=== PATIENT | female | born 1940 | race African-American/Black ===

== ENCOUNTER 2019-07-21 11:21 | Emergency (ER) | payer MEDICARE, OTHER ==
[~2019-07-21] VITALS: Ht 175.3 cm; Wt 74.8 kg
[2019-07-21] MEDS ORDERED: METOPROLOL SUCC25 MG ORAL (11:40)
[2019-07-21] MEDS ORDERED: PRAVACHOL40 MG ORAL (11:40)
[2019-07-21] MEDS ORDERED: LOSARTAN POTAS100 MG ORAL (11:40)
[2019-07-21] MEDS ORDERED: SYNTHROID150 MCG ORAL (11:40)
[2019-07-21] MEDS ORDERED: MELATONIN 10 M1 EACH ORAL (11:50)
[2019-07-21] MEDS ORDERED: ACETAMINOPHEN500 M5 ORAL (11:50)
[2019-07-21] MEDS ORDERED: ELIQUIS5 MG PO (11:50)
--- NOTE | 2019-07-21 11:54 | Emergency Room Report ---
History of Present Illness General Chief Complaint: Dizziness Source: Patient Present Illness HPI The patient states that she has had difficulty with feeling lightheaded since she was diagnosed with atrial fibrillation. She states that last month she had been feeling lightheaded and she ended up being diagnosed with intermittent atrial fibrillation. Apparently she also had a rapid rate. She is being managed by Dr. Meehan (social work associate). She was started on metoprolol for rate control. She states that she continues on her losartan, Eliquis and other medication she was taking other than amlodipine which she was taken off of it. She states she continues to have daily lightheadedness and then called her primary care physician and her primary care physician asked her if she had been taking her blood pressure. She states she took her blood pressure this morning several times and noted that her blood pressure was elevated. She states her blood pressure was systolic 170 and systolic 160. She states normally her systolic blood pressure is much lower than that. She states normally her systolic blood pressure is 120 or lower. She denies chest pain or shortness of breath. She denies recent illness. She denies tingling or numbness. She denies weakness. She denies nausea or vomiting. She has had some mild headache. She denies spinning sensation or loss of balance. She denies trauma or fall. She has no other complaints. Allergies: Coded Allergies: No Known Allergies (Unverified , 07/21/19) COVID-19 Screening Contact w/high risk pt: No Recent Travel to affected area: No Experienced COVID-19 symptoms?: No COVID-19 Testing performed MANAGER VALUATION: No Patient History Past Medical History: see triage record, HTN, AFib, other - Hypothyroid Past Surgical History: hysterectomy Social History: Denies: smoking, alcohol use, drug use Now: No Reviewed Nursing Documentation: PMH: Agreed; PSxH: Agreed Nursing Documentation-PMH Past Medical History: No History, Except For Hx Hypertension: Yes Review of Systems All Other Systems: negative except mentioned in HPI Physical Exam Vital Signs Date Time Temp Pulse Resp B/P (MAP) Pulse Ox O2 Delivery O2 Flow Rate FiO2 07/21/19 11:31 98.8 72 17 164/75 (104) 97 Room Air Sp02 EP Interpretation: reviewed, normal General Appearance: no apparent distress, alert, GCS 15, non-toxic Head: normocephalic, atraumatic Eyes: bilateral eye normal inspection, bilateral eye PERRL ENT: hearing grossly normal, normal pharynx, no angioedema, normal voice Neck: full range of motion, supple/symm/no masses Respiratory: chest non-tender, lungs clear, normal breath sounds, no respiratory distress, no retraction, no accessory muscle use, speaking full sentences Cardiovascular #1: regular rate, rhythm, no edema Gastrointestinal: normal bowel sounds, non tender, soft, non-distended, no guarding, no rebound Rectal: deferred Musculoskeletal: back normal, normal range of motion, gait/station normal, non- tender Neurologic: alert, motor strength/tone normal, oriented x3, sensory intact, responsive, speech normal Psychiatric: judgement/insight normal, memory normal, mood/affect normal, no suicidal/homicidal ideation Skin: no rash, normal color Medical Decision Making Diagnostic Impression: Primary Impression: Lightheadedness Additional Impression: Hypertension ER Course I suspect this patient's symptoms are side effects related to the metoprolol. Also, it appears that removing the amlodipine from the patient's regimen has caused her blood pressure to no longer be controlled. Overall, my evaluation of this patient was benign. I did obtain a CT of the head which was unremarkable. She underwent a cardiac work-up that was negative. EKG was unremarkable and troponin negative. Overall her evaluation was reassuring. I did contact the patient's social work associate Dr. Meehan. She recommended adding back the patient's amlodipine and possibly decreasing the metoprolol with the knowledge that possibly this could not rate control the patient's A. fib if she were to go back into atrial fibrillation. Together with the social work associate and with the patient and shared decision making, the patient will restart her amlodipine in the morning and will decrease the metoprolol to 1/2 tablet and take it in the evenings. The patient will also follow-up closely with Dr. Meehan. The patient is given close return precautions and follow-up instructions. Laboratory Tests Test 07/21/19 12:00 White Blood Count 5.9 K/UL (4.8-10.8) Red Blood Count 4.66 M/UL (4.20-5.40) Hemoglobin 11.8 G/DL (12.0-16.0) L Hematocrit 39.7 % (37.0-47.0) Mean Corpuscular Volume 85 FL (80-99) Mean Corpuscular Hemoglobin 25.4 PG (27.0-31.0) L Mean Corpuscular Hemoglobin Concent 29.8 G/DL (32.0-36.0) L Red Cell Distribution Width 14.8 % (11.6-14.8) Platelet Count 247 K/UL (150-450) Mean Platelet Volume 9.9 FL (6.5-10.1) Neutrophils (%) (Auto) 45.7 % (45.0-75.0) Lymphocytes (%) (Auto) 30.6 % (20.0-45.0) Monocytes (%) (Auto) 16.5 % (1.0-10.0) H Eosinophils (%) (Auto) 5.9 % (0.0-3.0) H Basophils (%) (Auto) 1.3 % (0.0-2.0) Urine Color Pale yellow Urine Appearance Clear Urine pH 6.5 (4.5-8.0) Urine Specific [place] 1.015 (1.005-1.035) Urine Protein Negative (NEGATIVE) Urine Glucose (UA) Negative (NEGATIVE) Urine Ketones Negative (NEGATIVE) Urine Blood Negative (NEGATIVE) Urine Nitrite Negative (NEGATIVE) Urine Bilirubin Negative (NEGATIVE) Urine Urobilinogen 1 MG/DL (0.0-1.0) H Urine Leukocyte Esterase 1+ (NEGATIVE) H Urine RBC 0-2 /HPF (0 - 2) Urine WBC 2-4 /HPF (0 - 2) Urine Squamous Epithelial Cells Few /LPF (NONE/OCC) Urine Calcium Oxalate Crystals Few /LPF (NONE) Urine Bacteria Occasional /HPF (NONE) Sodium Level 142 MMOL/L (136-145) Potassium Level 3.7 MMOL/L (3.5-5.1) Chloride Level 106 MMOL/L (98-107) Carbon Dioxide Level 27 MMOL/L (21-32) Anion Gap 9 mmol/L (5-15) Blood Urea Nitrogen 13 mg/dL (7-18) Creatinine 1.0 MG/DL (0.55-1.30) Estimated Glomerular Filtration Rate > 60 mL/min (>60) Glucose Level 87 MG/DL (74-106) Calcium Level 9.0 MG/DL (8.5-10.1) Total Bilirubin 0.5 MG/DL (0.2-1.0) Aspartate Amino Transferase (AST) 36 U/L (15-37) Alanine Aminotransferase (ALT) 39 U/L (12-78) Alkaline Phosphatase 55 U/L (46-116) Troponin I 0.000 ng/mL (0.000-0.056) Total Protein 7.3 G/DL (6.4-8.2) Albumin 3.5 G/DL (3.4-5.0) Globulin 3.8 g/dL Albumin/Globulin Ratio 0.9 (1.0-2.7) L Thyroid Stimulating Hormone (TSH) 1.726 uiU/mL (0.358-3.740) Free Thyroxine 1.58 NG/DL (0.76-1.46) H Free Triiodothyronine 1.9 pg/mL (2.3-4.2) L EKG Diagnostic Results Rate: normal Rhythm: NSR ST Segments: other - NSST findings Other Impression Flipped T-waves in V1,V2 Rhythm Strip Diag. Results EP Interpretation: yes Rate: 60's Rhythm: NSR, no PVC's, no ectopy Chest X-Ray Diagnostic Results Chest X-Ray Diagnostic Results : Chest X-Ray Ordered: Yes # of Views/Limited/Complete: 1 View Indication: Other EP Interpretation: Yes Interpretation: no consolidation, no effusion, no pneumothorax, no acute cardiopulmonary disease Impression: No acute disease Electronically Signed by: Jana Lynch DO CT/MRI/US Diagnostic Results CT/MRI/US Diagnostic Results : Imaging Test Ordered: CT head Impression No acute findings. Specifically no intracranial bleed, mass effect or edema. See official report. Last Vital Signs Date Time Temp Pulse Resp B/P (MAP) Pulse Ox O2 Delivery O2 Flow Rate FiO2 07/21/19 11:31 98.8 72 17 164/75 (104) 97 Room Air Status: improved Disposition: HOME, SELF-CARE Condition: Improved Jana Lynch DO Jul 21, 2019 11:54
[2019-07-21 12:10] VITALS: BP 164/75
[2019-07-21 12:29] LABS: APPEARANCE,URINE CLEAR; BILIRUBIN, URINE NEGATIVE (NEGATIVE); COLOR,URINE PALE YELLOW; GLUCOSE, URINE (UA) NEGATIVE (NEGATIVE); KETONES,URINE NEGATIVE (NEGATIVE); LEUKOCYTE ESTERASE ,URINE 1+ (NEGATIVE); NITRITE,URINE NEGATIVE (NEGATIVE); PH,URINE 6.5 (4.5-8.0); PROTEIN,URINE NEGATIVE (NEGATIVE); UROBILINOGEN,URINE 1 MG/DL (0.0-1.0)
[2019-07-21 12:40] LABS: ANION GAP 9 mmol/L (5-15); BLOOD UREA NITROGEN 13 mg/dL (7-18); CARBON DIOXIDE 27 MMOL/L (21-32); CHLORIDE 106 MMOL/L (98-107); POTASSIUM 3.7 MMOL/L (3.5-5.1); SODIUM 142 MMOL/L (136-145)
[2019-07-21 12:57] LABS: ALANINE AMINOTRANSFERASE 39 U/L (12-78); ALBUMIN 3.5 G/DL (3.4-5.0); ALBUMIN/GLOBULIN RATIO 0.9 (1.0-2.7); ALKALINE PHOSPHATASE 55 U/L (46-116); ASPARTATE AMINO TRANSFERASE 36 U/L (15-37); BILIRUBIN,TOTAL 0.5 MG/DL (0.2-1.0)
[2019-07-21 13:10] LABS: BASOPHILS % (AUTO) 1.3 % (0.0-2.0); EOSINOPHILS % (AUTO) 5.9 % (0.0-3.0); HEMATOCRIT 39.7 % (37.0-47.0); HEMOGLOBIN 11.8 G/DL (12.0-16.0); LYMPHOCYTES % (AUTO) 30.6 % (20.0-45.0); MEAN CORPUSCULAR VOLUME 85 FL (80-99); MONOCYTES % (AUTO) 16.5 % (1.0-10.0); NEUTROPHILS % (AUTO) 45.7 % (45.0-75.0); PLATELET COUNT 247 K/UL (150-450); RED BLOOD COUNT 4.66 M/UL (4.20-5.40); RED CELL DISTRIBUTION WIDTH 14.8 % (11.6-14.8); WHITE BLOOD COUNT 5.9 K/UL (4.8-10.8)
[2019-07-21 13:11] VITALS: BP 153/73
--- NOTE | 2019-07-21 13:17 | Diagnostic Imaging Report ---
Indication: Cough Technique: One view of the chest Comparison: none Findings: Large loop monitor projects over the left chest. Lungs and pleural spaces are clear. The heart size is normal. The aorta is tortuous. Impression: No acute process
--- NOTE | 2019-07-21 14:13 | Diagnostic Imaging Report ---
Indications: Vertigo, hypertension Technique: Spiral acquisitions obtained through the brain. Angled axial and coronal 5 x 5 mm slices were reconstructed. Total dose length product 1018 mGycm. CTDI vol(s) 53 mGy. Dose reduction achieved using automated exposure control Comparison: None. Findings: No acute intracranial hemorrhage or edema. No mass effect or midline shift. Normal for age ventricles and extra-axial CSF spaces. Normal painter-white differentiation. The visualized orbits and sinuses are unremarkable. The mastoids are clear. The calvarium is intact. Impression: Negative for acute intracranial bleed or mass effect The CT scanner at [facility] is accredited by the [employer] and the scans are performed using protocols designed to limit radiation exposure to as low as reasonably achievable to attain images of sufficient resolution adequate for diagnostic evaluation.
[2019-07-21 15:01] VITALS: BP 144/86
== END 2019-07-21 15:08 | disposition home or self-care (01) ==
LOC: EMR 12:05
DX: R42 Dizziness and giddiness (principal); I10 Essential (primary) hypertension; I48.91 Unspecified atrial fibrillation; Z79.01 Long term (current) use of anticoagulants; E03.9 Hypothyroidism, unspecified
CPT/HCPCS: 36415; 70450; 71045; 80053; 81003; 84439; 84443; 84481; 84484; 85025; 93005; 96360; 99284